=== PATIENT | male | born 2000 | race Caucasian/White ===

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

== ENCOUNTER 2023-03-06 15:22 | Emergency (ER) | payer BC, SELFPAY ==
[2023-03-06 15:30] VITALS: BP 134/90; PULSE 75; RESP 18; TEMP 36.8; O2SAT 98; BMI 21.7
--- NOTE | 2023-03-06 16:15 | EXP.UTC ---
Discharge Plan Disposition Patient Disposition: Home, Self-Care Condition: Good Prescriptions Prescriptions: New clindamycin HCl 300 mg capsule 300 mg PO TID 7 Days Qty: 21 0RF No Action hydroxyzine pamoate 25 mg capsule 25 mg PO QIDP PRN (Reason: Anxiety) Referrals Follow up/Referrals: Provider,Referral, [Primary Care Provider] - See instructions Activity Restrictions/Add. Instructions Additional Instructions/Restrictions: Take medication as prescribed FOllow up with Dentist next week when back in office Over the counter Motrin and/or Tylenol as directed on package for pain Return if needed Clinical Impressions Clinical Impression: Dental infection Instructions Patient Instructions: Clindamycin Discharge ED Provider: Silvia Hood Martina [facility] [[email or web address] HPI General Stated complaint: RT sdie face swollen Mode of Arrival: Ambulatory Source of Information: Patient Limitations: No Limitations Time Seen by Provider: 03/06/23 16:15 Description of Symptoms (Recalled from Triage Doc. by RN): PATIENT REPORTS HE GOT A RIGHT LOWER TOOTH PULLED ON THURSDAY AND THIS MORNING HE HAD SWELLING TO RIGHT SIDE OF FACE. DENIES ANY PAIN TO AREA HEENT Symptoms (Recalled from RN notes): Yes Resp Symptoms (Recalled from RN notes): No Skin Symptoms (Recalled from RN notes): No MS Symptoms (Recalled from RN notes): No Functional Status (Recalled from RN notes): WNL History of Present Illness Provider Complaint: Patient states that he had a tooth pulled on Thu and this morning woke up with his jaw area slightly swollen and states that he thinks it may be infected States that he can taste it at times States that he called the dental office and they was closed so he came in here to get checked Related Data Home Medications Medication Instructions Recorded Confirmed hydroxyzine pamoate 25 mg capsule 25 mg PO QIDP PRN Anxiety 03/06/23 03/06/23 Previous Rx's Medication Instructions Recorded clindamycin HCl 300 mg capsule 300 mg PO TID 7 days #21 caps 03/06/23 Allergies Allergy/AdvReac Type Severity Reaction Status Date / Time codeine Allergy Verified 03/06/23 15:38 Worker's Comp Is this a Worker's Comp case?: No [facility] Disclaimer: The information contained in this section may have been updated after the patient was seen, as this information can be updated by other users. Medical History (Updated 03/06/23 @ 16:21 by Silvia Hood APRN) Anxiety Depression Surgical History (Updated 03/06/23 @ 15:41 by Shauna Ramesh RN) History of tonsillectomy History of tympanostomy tube placement Social History Smoking Status: Unknown if ever smoked alcohol intake: never current occupational status: employed Travel in the last 8 weeks: None ROS Obtained: Yes All systems reviewed & no additional complaints except as documented and Yes Systems reviewed as appropriate & no additional complaints except as documented ENT Ears, Nose, Mouth, and Throat: Reports system reviewed and no additional complaints, except as documented, Reports as per HPI and Reports other (Dental pain and swelling after having tooth removed earlier in the week) Cardiovascular Cardiovascular: Reports system reviewed and no additional complaints, except as documented and Reports as per HPI Gastrointestinal Gastrointestingal: Reports system reviewed and no additional complaints, except as documented and as per HPI Physical Exam General General appearance: alert and in no apparent distress Expanded ENT Exam Comment: Swelling in right lower jaw and infection after having tooth removed Respiratory Respiratory exam: Present normal lung sounds bilaterally; Absent respiratory distress or wheezes Cardiovascular Cardiovascular exam: Present regular rate, normal rhythm and normal heart sounds Abdominal Exam Abdominal exam: Present soft and normal bowel sounds; Absent distention or tenderness Neurological Exam Neurological exam: Presen
[2023-03-06 16:23] VITALS: BP 134/90; PULSE 75; RESP 18; TEMP 36.8; O2SAT 98
== END 2023-03-06 16:26 | disposition home or self-care (01) ==
PROVIDERS: Emergency Provider Nurse Practitioner
DX: R22.0 Localized swelling, mass and lump, head (principal); F41.9 Anxiety disorder, unspecified; F32.A Depression, unspecified
CPT/HCPCS: 99212; 99214; G0463

== ENCOUNTER → 2023-04-14 00:10 | Outpatient (CLI) | payer BC, SELFPAY ==
[2023-04-16 09:24] LABS: HBsAg Screen Negative (Negative); HCV Ab Non Reactive (Non Reactive); HIV Screen 4th Generation wRfx Non Reactive (Non Reactive); Hep A Ab, IGM Negative (Negative); Hep B Core Ab, IgM Negative (Negative)
== END ==
PROVIDERS: PCP Nurse Practitioner Psychiatric/Mental Health; Visit Provider Nurse Practitioner Psychiatric/Mental Health
DX: F19.11 Other psychoactive substance abuse, in remission (principal); Z11.4 Encounter for screening for human immunodeficiency virus [HIV]
CPT/HCPCS: 80074; 86703; G0432

== ENCOUNTER 2023-04-23 17:41 | Emergency (ER) | payer BC, SELFPAY ==
[2023-04-23 18:05] VITALS: BP 132/86; PULSE 82; RESP 20; TEMP 36.8; O2SAT 99; BMI 21.7
--- NOTE | 2023-04-23 18:36 | EXP.UTC ---
Discharge Plan Disposition Patient Disposition: Home, Self-Care Condition: Good Prescriptions Prescriptions: New ibuprofen 600 mg tablet 600 mg PO Q6HP PRN (Reason: Moderate Pain) Qty: 20 0RF No Action hydroxyzine pamoate 25 mg capsule 25 mg PO QIDP PRN (Reason: Anxiety) buspirone 10 mg tablet 10 mg PO BID Referrals Follow up/Referrals: Provider,Referral, MD [Primary Care Provider] - See instructions Activity Restrictions/Add. Instructions Additional Instructions/Restrictions: Use dental balls as directed in the [facility] today Ibuprofen as prescribed FOllow up with Dentist if pain persists or does not improve Clinical Impressions Clinical Impression: Pain, dental Instructions Patient Instructions: Ibuprofen, DI for Dental Pain Discharge ED Provider: Silvia Hood [facility] HPI General Stated complaint: dental pain Mode of Arrival: Ambulatory Source of Information: Patient Limitations: No Limitations Time Seen by Provider: 04/23/23 18:36 Description of Symptoms (Recalled from Triage Doc. by RN): PATIENT C/O NERVE PAIN IN MOUTH AFTER HAVING DENTAL WORK DONE TODAY AND YESTERDAY HEENT Symptoms (Recalled from RN notes): Yes Resp Symptoms (Recalled from RN notes): No Skin Symptoms (Recalled from RN notes): No MS Symptoms (Recalled from RN notes): No Functional Status (Recalled from RN notes): WNL History of Present Illness Provider Complaint: Patient states that he had dental work done yesterday and today and he is having nerve pain in his left side State that they did a filling and a crown and after he got home it started hurting so he came in to see if he could get something to help Related Data Home Medications Medication Instructions Recorded Confirmed hydroxyzine pamoate 25 mg capsule 25 mg PO QIDP PRN Anxiety 03/06/23 04/23/23 buspirone 10 mg tablet 10 mg PO BID . 04/23/23 04/23/23 Previous Rx's Medication Instructions Recorded ibuprofen 600 mg tablet 600 mg PO Q6HP PRN Moderate Pain 04/23/23 #20 tabs Allergies Allergy/AdvReac Type Severity Reaction Status Date / Time codeine Allergy Verified 04/13/23 13:21 Worker's Comp Is this a Worker's Comp case?: No [facility] Disclaimer: The information contained in this section may have been updated after the patient was seen, as this information can be updated by other users. Medical History (Updated 04/23/23 @ 18:41 by Silvia Hood APRN) Anxiety Depression Drug abuse in remission Generalized anxiety disorder History of intravenous drug abuse History of seizure Surgical History (Updated 04/13/23 @ 13:50 by Debo Beard APRN) History of surgery on arm History of tonsillectomy History of tympanostomy tube placement Social History (Updated 04/13/23 @ 13:49 by Debo Beard APRN) Smoking Status: Current some day smoker second hand exposure: No alcohol intake: current counseling given: No substance use type: former substance user, marijuana, crack/cocaine, heroin and IV drugs counseling given: No current occupational status: employed Travel in the last 8 weeks: None adopted: No caregiver/support person: No foster care: No household members: family housing: house lives independently: No marital status: single number of children: 0 number of grandchildren: 0 education level: high school Hx Recent Travel: No sexually active: Yes caffeine: Yes physical activity: none jose/church: [employer]ain special jose needs: No working smoke detector in home: Yes fire extinguisher in home: Yes carbon monox detector in home: Yes firearms in home: Yes firearms unloaded and locked: Yes do you feel safe at home: Yes victim of physical abuse: No victim of emotional abuse: No victim of sexual abuse: No would you like helpful sources: No ROS Obtained: Yes All systems reviewed & no additional complaints except as documented and Yes Systems re
[2023-04-23 18:42] VITALS: BP 132/86; PULSE 82; RESP 20; TEMP 36.8; O2SAT 99
== END 2023-04-23 18:45 | disposition home or self-care (01) ==
PROVIDERS: Emergency Provider Nurse Practitioner
DX: K08.89 Other specified disorders of teeth and supporting structures (principal); F17.210 Nicotine dependence, cigarettes, uncomplicated; F41.1 Generalized anxiety disorder; F32.A Depression, unspecified; F19.11 Other psychoactive substance abuse, in remission
CPT/HCPCS: 99212; 99214; G0463

== ENCOUNTER 2024-01-14 19:28 | Emergency (ER) | payer BC, SELFPAY ==
[2024-01-14 19:29] VITALS: BP 156/85; PULSE 86; RESP 20; TEMP 36.8; O2SAT 100; BMI 17.5
--- NOTE | 2024-01-14 19:33 | ED_ITS ---
Discharge Plan Disposition Patient Disposition: Home, Self-Care Condition: Good Prescriptions Prescriptions: No Action pantoprazole 40 mg tablet,delayed release (DR/EC) 40 mg PO DAILY Qty: 60 4RF Referrals Follow up/Referrals: Enrrique Wilkinson MD [Staff Physician] - See instructions (Upper endoscopy) Alexey Clayton MD [Primary Care Provider] - See instructions Debo Beard APRN [Nurse Practitioner] - See instructions (Anxiety disorder) Activity Restrictions/Add. Instructions Additional Instructions/Restrictions: Follow-up with Dr. Wilkinson for upper endoscopy. Unfortunately I was unable to order your barium swallow from the ER. Please follow-up with your PCP to have a barium swallow ordered. You can try calling in the morning to see if they will order it. Return to the ER for any worsening signs or symptoms. Clinical Impressions Clinical Impression: MAYCOL (generalized anxiety disorder) Dysphagia Qualifiers: Dysphagia type: unspecified Qualified Code(s): R13.10 - Dysphagia, unspecified Instructions Patient Instructions: DI for Esophageal Dysphagia Discharge ED Provider: George Sears General Adult HPI <NATALIE Huitron - Last Filed: 01/14/24 21:37> General Chief complaint: Skin/Abscess/Foreign Body Stated complaint: diff swallowing, SOA Time Seen by Provider: 01/14/24 19:30 History of Present Illness HPI narrative: Patient presents for evaluation dysphagia. Patient states that since August he is having intermittent but now persistent difficulty in swallowing. Patient states that is not painful he just cannot get solid things down. It is worse with starchy foods like potato and breads. He is able to swallow liquids with no difficulty. He denies chest pain shortness of breath fever chills hemoptysis hematochezia melena nausea vomiting diarrhea. He does report that he has a history of a panic disorder but is on no medications currently. Patient saw PCP today and was prescribed pantoprazole and a ultrasound per the patient's report was set up. Related Data Previous Rx's Medication Instructions Recorded pantoprazole 40 mg tablet,delayed 40 mg PO DAILY #60 tabs 01/12/24 release Allergies Allergy/AdvReac Type Severity Reaction Status Date / Time codeine AdvReac Intermediate Gastrointestinal Verified 01/14/24 20:13 Upset Penicillins AdvReac Intermediate Gastrointestinal Verified 01/14/24 20:13 Upset PFSH <NATALIE Huitron - Last Filed: 01/14/24 21:37> [facility] Disclaimer: The information contained in this section may have been updated after the patient was seen, as this information can be updated by other users. Medical History Drug abuse in remission Generalized anxiety disorder History of intravenous drug abuse History of seizure -more associated with pain -like if he hit his elbow -he would have one -last one was when he was 7-8 years old Depression Anxiety Surgical History History of surgery on arm left arm -X2 History of tympanostomy tube placement History of tonsillectomy Family History Family/Other No significant family history Social History Smoking Status: Never smoker second hand exposure: No alcohol intake: current alcohol intake frequency: a few times a month counseling given: No substance use type: former substance user, marijuana, crack/cocaine, heroin and IV drugs counseling given: No current occupational status: employed Travel in the last 8 weeks: None adopted: No caregiver/support person: No foster care: No household members: family housing: house lives independently: No marital status: single number of children: 0 number of grandchildren: 0 education level: high school Hx Recent Travel: No sexually active: Yes caffeine: Yes physical activity: none jose/taoist: Restoration special jose needs: No working smoke detector in home: Yes fire extinguisher in home: Yes carbon monox detector in home: Yes firearms in home: Yes firearms unloaded and locked: Yes do you feel safe at home: Yes victim of physical abuse: No victim of emotional abuse: No victim of sexual abuse: No would you like helpful sources: No <NATALIE Huitron - Last Filed: 01/14/24 21:37> ROS Obtained: Yes Systems reviewed as appropriate & no additional complaints except as documented Physical Exam <NATALIE Huitron - Last Filed: 01/14/24 21:37> General General appearance: alert and in no apparent distress Respiratory Respiratory exam: Present normal lung sounds bilaterally Cardiovascular Cardiovascular exam: Present regular rate and normal rhythm Abdominal Exam Abdominal exam: Present soft and normal bowel sounds; Absent tenderness, guarding or rebound Back Exam Back exam: Present normal inspection and full ROM; Absent tenderness Neurological Exam Neurological exam: Present alert and oriented X3 Psychiatric Psychiatric exam: Present agitated and anxious Skin Skin exam: Present warm, dry and normal color Lymphatic Lymphatic Findings: no adenopathy Medical Decision Making <NATALIE Huitron - Last Filed: 01/14/24 21:37> Medical Records Medical records reviewed: Yes I reviewed the patient's medical records. [place] Inquiry Pt receiving controlled substance: No Vital Signs: 01/14/24 19:29 01/14/24 19:35 01/14/24 20:30 Temperature 98.3 F Temperature Source Oral Pulse Rate 93 H 99 H Pulse Rate [Left] 86 Respiratory Rate 20 Blood Pressure 156/85 H Blood Pressure [Right Arm] 156/85 H Blood Pressure Mean [Right Arm] 108 Blood Pressure Source [Right Arm] Automatic Cuff Blood Pressure Position [Right Arm] Sitting 02 Sat by Pulse Oximetry 100 99 100 Oxygen Delivery Method Room Air 01/14/24 21:45 01/14/24 21:58 Temperature 98.2 F Temperature Source Pulse Rate 66 67 Pulse Rate [Left] Respiratory Rate 17 Blood Pressure 136/88 136/88 Blood Pressure [Right Arm] Blood Pressure Mean [Right Arm] Blood Pressure Source [Right Arm] Blood Pressure Position [Right Arm] 02 Sat by Pulse Oximetry 98 Oxygen Delivery Method Room Air Lab Data Lab results reviewed: Yes I reviewed the patient's lab results. Lab Results 01/14/24 20:07: WBC 7.7, RBC 5.00, Hgb 16.3, Hct 47.5, MCV 94.8 H, MCH 32.6 H, MCHC 34.4, RDW 13.0, Plt Count 165, MPV 8.9, Neut % (Auto) 59.8, Lymph % (Auto) 34.5, Petroleum % (Auto) 3.8, Eos % (Auto) 1.1, Baso % (Auto) 0.8, Neut # (Auto) 4.6, Lymph # (Auto) 2.7, Petroleum # (Auto) 0.3, Eos # (Auto) 0.1, Baso # (Auto) 0.1, Sodium 138, Potassium 3.6, Chloride 102, Carbon Dioxide 27, Anion Gap 12.6, BUN 10, Creatinine 1.10, Estimated Creat Clear 91, Estimated GFR 85, Est GFR ( Amer) 102, Glucose 103 H, Calcium 9.9, Magnesium 1.8, Total Bilirubin 0.8, AST 29, ALT 23, Alkaline Phosphatase 74, Troponin I < 0.01, Total Protein 8.4 H, Albumin 5.0, Globulin 3.4 H, Albumin/Globulin Ratio 1.5, Lipase 71 01/14/24 20:07 01/14/24 20:07 Orders (Tests/Meds): ED MEDICATIONS Discontinued Medications Generic Name Dose Route Start Last Admin Trade Name Freq PRN Reason Stop Dose Admin Acetaminophen 1,000 mg 01/14/24 19:45 01/14/24 20:05 Acetaminophen 1,000mg/100ml Vial IV 01/14/24 19:46 1,000 mg ONCE ONE Administration Belladonna Alkaloids 60 ml 01/14/24 19:45 01/14/24 20:05 Belladonna Alkaloids 60 Ml Ml PO 01/14/24 19:46 60 ml ONCE ONE Administration Dexamethasone Sodium Phosphate 10 mg 01/14/24 19:45 01/14/24 20:05 Dexamethasone 4mg/Ml 5ml Mdv IV 01/14/24 19:46 10 mg ONCE ONE Administration Lactated Ringer's 1,000 mls @ 999 mls/hr 01/14/24 19:45 01/14/24 20:04 Lactated Ringer's 1000 Ml Bag IV 01/14/24 20:45 999 mls/hr .Q1H1M ONE Administration Pantoprazole Sodium 80 mg/ 100 mls @ 100 mls/hr 01/14/24 19:48 01/14/24 20:04 Sodium Chloride IV 01/14/24 20:47 100 mls/hr ONCE ONE Administration Ketorolac Tromethamine 15 mg 01/14/24 19:45 01/14/24 20:05 Ketorolac 30mg/Ml Vial IV 01/14/24 19:46 15 mg ONCE ONE Administration Lorazepam 0.5 mg 01/14/24 20:01 01/14/24 20:11 Lorazepam 2mg/Ml Vial IV 01/14/24 20:02 0.5 mg ONCE ONE Administration Lorazepam 0.5 mg 01/14/24 20:45 01/14/24 21:05 Lorazepam 2mg/Ml Vial IV 01/14/24 20:46 Not Given ONCE ONE Sodium Chloride 10 ml 01/14/24 20:45 Sodium Chloride 0.9% 10ml Vial IV 02/13/24 20:44 NEEDED PRN to Dilute Lorazepam inj ORDERS Category Date Time Status CBC w/Auto Diff [Complete Blood Count Auto Diff] Stat Lab 01/14/24 20:07 Completed CMP [Comprehensive Metabolic Panel] Stat Lab 01/14/24 20:07 Completed Lipase Stat Lab 01/14/24 20:07 Completed Magnesium Stat Lab 01/14/24 20:07 Completed Trop I [Troponin I] Stat Lab 01/14/24 20:07 Completed Medical Decision Narrative: In summary patient is a 23-year-old male who presents to the emergency department for evaluation of dysphagia. Patient is hemodynamically stable upon arrival, afebrile. Zickel exam shows slightly cachectic appearing but otherwise healthy 23-year-old male that has no abdominal pain on palpation but has a self- reported difficulty swallowing. Patient states he has most difficulty with starchy foods such as potato and bread but is tolerating oral liquids without difficulty. Patient also is very anxious on exam. Differential diagnosis includes anxiety disorder versus panic disorder versus GERD versus gastric ulcer versus eosinophilic esophagitis versus esophageal stricture etc. Initial workup will be conducted with hematologic labsl. Initial interventions include Ativan Toradol Tylenol GI cocktail. Initial workup reviewed by me shows that his hematologic labs are nonactionable. Upon repeat evaluation patient reported moderate improvement especially with his anxiety. Given this patient will be discharged with orders for barium swallow tomorrow and referral to general surgery for endoscopy and behavioral health. <George Sears MD - Last Filed: 01/14/24 22:58> Vital Signs: 01/14/24 19:29 01/14/24 19:35 01/14/24 20:30 Temperature 98.3 F Temperature Source Oral Pulse Rate 93 H 99 H Pulse Rate [Left] 86 Respiratory Rate 20 Blood Pressure 156/85 H Blood Pressure [Right Arm] 156/85 H Blood Pressure Mean [Right Arm] 108 Blood Pressure Source [Right Arm] Automatic Cuff Blood Pressure Position [Right Arm] Sitting 02 Sat by Pulse Oximetry 100 99 100 Oxygen Delivery Method Room Air 01/14/24 21:45 01/14/24 21:58 Temperature 98.2 F Temperature Source Pulse Rate 66 67 Pulse Rate [Left] Respiratory Rate 17 Blood Pressure 136/88 136/88 Blood Pressure [Right Arm] Blood Pressure Mean [Right Arm] Blood Pressure Source [Right Arm] Blood Pressure Position [Right Arm] 02 Sat by Pulse Oximetry 98 Oxygen Delivery Method Room Air Lab Data Lab Results 01/14/24 20:07: WBC 7.7, RBC 5.00, Hgb 16.3, Hct 47.5, MCV 94.8 H, MCH 32.6 H, MCHC 34.4, RDW 13.0, Plt Count 165, MPV 8.9, Neut % (Auto) 59.8, Lymph % (Auto) 34.5, Petroleum % (Auto) 3.8, Eos % (Auto) 1.1, Baso % (Auto) 0.8, Neut # (Auto) 4.6, Lymph # (Auto) 2.7, Petroleum # (Auto) 0.3, Eos # (Auto) 0.1, Baso # (Auto) 0.1, Sodium 138, Potassium 3.6, Chloride 102, Carbon Dioxide 27, Anion Gap 12.6, BUN 10, Creatinine 1.10, Estimated Creat Clear 91, Estimated GFR 85, Est GFR ( Amer) 102, Glucose 103 H, Calcium 9.9, Magnesium 1.8, Total Bilirubin 0.8, AST 29, ALT 23, Alkaline Phosphatase 74, Troponin I < 0.01, Total Protein 8.4 H, Albumin 5.0, Globulin 3.4 H, Albumin/Globulin Ratio 1.5, Lipase 71 Orders (Tests/Meds): ED MEDICATIONS Discontinued Medications Generic Name Dose Route Start Last Admin Trade Name Arabella PRN Reason Stop Dose Admin Acetaminophen 1,000 mg 01/14/24 19:45 01/14/24 20:05 Acetaminophen 1,000mg/100ml Vial IV 01/14/24 19:46 1,000 mg ONCE ONE Administration Belladonna Alkaloids 60 ml 01/14/24 19:45 01/14/24 20:05 Belladonna Alkaloids 60 Ml Ml PO 01/14/24 19:46 60 ml ONCE ONE Administration Dexamethasone Sodium Phosphate 10 mg 01/14/24 19:45 01/14/24 20:05 Dexamethasone 4mg/Ml 5ml Mdv IV 01/14/24 19:46 10 mg ONCE ONE Administration Lactated Ringer's 1,000 mls @ 999 mls/hr 01/14/24 19:45 01/14/24 20:04 Lactated Ringer's 1000 Ml Bag IV 01/14/24 20:45 999 mls/hr .Q1H1M ONE Administration Pantoprazole Sodium 80 mg/ 100 mls @ 100 mls/hr 01/14/24 19:48 01/14/24 20:04 Sodium Chloride IV 01/14/24 20:47 100 mls/hr ONCE ONE Administration Ketorolac Tromethamine 15 mg 01/14/24 19:45 01/14/24 20:05 Ketorolac 30mg/Ml Vial IV 01/14/24 19:46 15 mg ONCE ONE Administration Lorazepam 0.5 mg 01/14/24 20:01 01/14/24 20:11 Lorazepam 2mg/Ml Vial IV 01/14/24 20:02 0.5 mg ONCE ONE Administration Lorazepam 0.5 mg 01/14/24 20:45 01/14/24 21:05 Lorazepam 2mg/Ml Vial IV 01/14/24 20:46 Not Given ONCE ONE Sodium Chloride 10 ml 01/14/24 20:45 Sodium Chloride 0.9% 10ml Vial IV 02/13/24 20:44 NEEDED PRN to Dilute Lorazepam inj ORDERS Category Date Time Status CBC w/Auto Diff [Complete Blood Count Auto Diff] Stat Lab 01/14/24 20:07 Completed CMP [Comprehensive Metabolic Panel] Stat Lab 01/14/24 20:07 Completed Lipase Stat Lab 01/14/24 20:07 Completed Magnesium Stat Lab 01/14/24 20:07 Completed Trop I [Troponin I] Stat Lab 01/14/24 20:07 Completed Medical Decision Narrative: In summary patient is a 23-year-old male who presents to the emergency department for evaluation of dysphagia. Patient is hemodynamically stable upon arrival, afebrile. Zickel exam shows slightly cachectic appearing but otherwise healthy 23-year-old male that has no abdominal pain on palpation but has a self- reported difficulty swallowing. Patient states he has most difficulty with starchy foods such as potato and bread but is tolerating oral liquids without difficulty. Patient also is very anxious on exam. Differential diagnosis includes anxiety disorder versus panic disorder versus GERD versus gastric ulcer versus eosinophilic esophagitis versus esophageal stricture etc. Initial workup will be conducted with hematologic labsl. Initial interventions include Ativan Toradol Tylenol GI cocktail. Initial workup reviewed by me shows that his hematologic labs are nonactionable. Upon repeat evaluation patient reported moderate improvement especially with his anxiety. Given this patient will be discharged with orders for barium swallow tomorrow and referral to general surgery for endoscopy and behavioral health. I was consulted by the NIXON, and we discussed the complexity of the problems being addressed. I approved the treatment and management plan for this patient?s care in the Emergency Department, thus performing a substantive portion of the medical decision making. Because patient at baseline without signs or symptoms of clinical decompensation, deemed appropriate for discharge. Results were relayed to patient who voiced understanding and were agreeable to outpatient management and follow up. I discussed my clinical impression with patient and answered all questions. At this time, the evidence for any other entities in the differential is insufficient to warrant any further testing or ED observation. This was explained as well. Advisory was given that persistent or worsening symptoms require further evaluation. I confirmed the understanding of this discussion. George Sears MD Critical Care <NATALIE Huitron - Last Filed: 01/14/24 21:37> Critical Care Time Critical Care Time: No
[2024-01-14 19:35] VITALS: BP 156/85; PULSE 93; O2SAT 99
[2024-01-14] MEDS: PANTOPRAZOLE SODIUM 80 MG in 0.9 % SODIUM CHLORIDE 100 ML 100 MG IV (20:04)
[2024-01-14] MEDS: LACTATED RINGERS 1000ML 1,000 ML 999 ML IV (20:04)
[2024-01-14] MEDS: DEXAMETHASONE 4MG/ML 5ML MDV 10 MG IV (20:05)
[2024-01-14] MEDS: KETOROLAC 30MG/ML VIAL 15 MG IV (20:05)
[2024-01-14] MEDS: BELLADONNA ALKALOIDS 60 ML ML PO (20:05)
[2024-01-14] MEDS: ACETAMINOPHEN 1,000MG/100ML VIAL 1000 MG IV (20:05)
[2024-01-14] MEDS: LORazepam 2MG/ML VIAL 0.5 MG IV (20:11)
--- NOTE | 2024-01-14 20:12 | PC.NURSE ---
Pt was very anxious, Dr Kovacs asked for Ativan to given at 2009, medication was not verified. I medicated and went to waste in omni and medication is not showing as pulled. Wasted with Brisa DUMONT
[2024-01-14 20:15] LABS: Basophils # 0.1 K/mm3 (0-0.2); Basophils % 0.8 % (0.1-2.0); Eosinophils # 0.1 K/mm3 (0.0-0.4); Eosinophils % 1.1 % (0.1-12.0); Hematocrit 47.5 % (42.0-52.0); Hemoglobin 16.3 g/dL (14.1-18.0); Lymphocytes # 2.7 K/mm3 (0.7-4.5); Lymphocytes % 34.5 % (10-50); Mean Corpuscular HGB Conc 34.4 g/dL (31.8-35.4); Mean Corpuscular Hemoglobin 32.6 pg (27.0-31.2); Mean Corpuscular Volume 94.8 fl (80-94); Mean Platelet Volume 8.9 fl (7.4-10.4); Monocytes # 0.3 K/mm3 (0.1-1.0); Monocytes % 3.8 % (1.7-9.3); Neutrophils # 4.6 K/mm3 (1.8-7.8); Neutrophils % 59.8 % (37.0-80.0); Platelet Count 165 K/mm3 (142-424); White Blood Count 7.7 K/mm3 (4.8-10.8)
[2024-01-14 20:18] LABS: Chloride 102 mmol/L (98-107); Potassium 3.6 mmoL/L (3.5-5.1); Sodium 138 mmol/L (136-145)
[2024-01-14 20:20] LABS: Alanine Aminotransferase 23 U/L (12-78); Aspartate Amino Transferase 29 U/L (17-59); Blood Urea Nitrogen 10 mg/dl (9-20); Creatinine Clearance Estimated 91 mL/min (50-200); Estimated Glomerular Filt Rate 85 ml/min (>60); GFR (African American) 102 ML/MIN (>60)
[2024-01-14 20:21] LABS: Albumin/Globulin Ratio 1.5 (1.1-1.8); Alkaline Phosphatase 74 U/L (38-126); Anion Gap 12.6 mEq/L (5-15); Bilirubin,Total 0.8 mg/dl (0.2-1.3); Calcium 9.9 mg/dl (8.4-10.2); Carbon Dioxide 27 mmol/L (22.0-30.0); Globulin 3.4 g/dL (1.3-3.2); Glucose 103 mg/dl (74-100); Lipase 71 U/L (23-300); Magnesium 1.8 mg/dl (1.6-2.3); Total Protein,Serum 8.4 g/dl (6.3-8.2)
[2024-01-14 20:30] VITALS: PULSE 99; O2SAT 100
[2024-01-14 20:33] LABS: Troponin I < 0.01 ng/ml (0.00-0.034)
[2024-01-14 21:45] VITALS: BP 136/88; PULSE 66; O2SAT 98
[2024-01-14 21:58] VITALS: BP 136/88; PULSE 67; RESP 17; TEMP 36.8; O2SAT 97
== END 2024-01-14 22:00 | disposition home or self-care (01) ==
PROVIDERS: Physician Assistant; Emergency Provider Emergency Medicine; PCP Family Medicine
DX: R13.10 Dysphagia, unspecified (principal); F41.1 Generalized anxiety disorder
CPT/HCPCS: 80053; 83690; 83735; 84484; 85025; 96365; 96375; 96376; 99284; J0131; J7120

== ENCOUNTER 2024-01-15 13:44 | Emergency (ER) | payer BC, SELFPAY ==
[2024-01-15] VITALS (9 sets, daily range): BP systolic 128–140; BP diastolic 68–88; PULSE 75–104; RESP 18; TEMP 36.6–36.7; O2SAT 97–100; BMI 17.5
--- NOTE | 2024-01-15 15:03 | CT_ITS ---
FINAL REPORT CLINICAL HISTORY: dysphagia FINDINGS: CT CHEST WITH CONTRAST TECHNIQUE: After the administration of intravenous contrast, axial images through the chest were performed by computed tomography. This study was performed with techniques to keep radiation doses as low as reasonably achievable, (ALARA). Individualized dose reduction techniques using automated exposure control or adjustment of mA and/or kV according to the patient's size were employed. FINDINGS: The thoracic esophagus is decompressed having a grossly unremarkable appearance. There is no evidence of pneumomediastinum. There is no axillary adenopathy. There is no hilar or mediastinal adenopathy. The heart size is normal. There is no pericardial or pleural effusion. No suspicious infiltrate or nodule identified. Limited images of the upper abdomen are unremarkable. IMPRESSION: 1. No evidence of aspiration pneumonia. 2. No evidence of mediastinal mass or obvious esophageal wall thickening. Reviewed, Interpreted and Dictated by Avinash Copeland MD Transcribed by Leticia Sam Authenticated and [facility]
--- NOTE | 2024-01-15 15:20 | PC.NURSE ---
PT TO CT
--- NOTE | 2024-01-15 15:31 | ED_ITS ---
Discharge Plan Disposition Patient Disposition: Home, Self-Care Prescriptions Prescriptions: No Action pantoprazole 40 mg tablet,delayed release (DR/EC) 40 mg PO DAILY Qty: 60 4RF Referrals Follow up/Referrals: Alexey Clayton MD [Primary Care Provider] - See instructions Activity Restrictions/Add. Instructions Additional Instructions/Restrictions: Your EGD is scheduled for 8:30 AM on Thursday. Please be n.p.o. at midnight and come to the hospital at 7 AM. Clinical Impressions Clinical Impression: Dysphagia Qualifiers: Dysphagia type: unspecified Qualified Code(s): R13.10 - Dysphagia, unspecified Instructions Patient Instructions: DI for Acute Abdominal Pain Discharge ED Provider: Gulshan Moore General Adult HPI <Troy Escobar MD - Last Filed: 01/15/24 16:48> General Chief complaint: Abdominal Pain Stated complaint: diff. swallowing, stomach pain Time Seen by Provider: 01/15/24 14:50 Mode of Arrival: Ambulatory Source of Information: Patient Limitations: No Limitations Description of Symptoms (Recalled from ER Triage Doc. by RN): pt presents to ED stating he was seen in the ED last night for difficulty swallowing. pt states that he was instructed to follow up for a barium swallow and endoscopy. pt states he did call Dr. Cameron office today, NATALIE Carrillo for an appointment but informed it would be months before he could have test obtained. pt states that he has beenunable to eat for 11 days and has had a 13 lb weight loss. pt states he can tolerate his saliva and water but the more thickened liquids like smoothies and solids he is unable. pt reports burning sensation in upper abdomen that will come into throat approx daily. pt reports taking Pantoprazole 40 mg daily. History of Present Illness HPI narrative: Patient is a 23-year-old male with history of anxiety/depression who presents due to dysphagia. Patient's girlfriend is present to help provide history. Patient reports since August he has had progressive dysphagia. Over the past 11 days, he has been unable to eat solid foods and has lost 13 pounds. States he has been able to tolerate thin liquids however thick liquids are challenging. He describes a pressure-like sensation when trying to swallow. States he was initially seen by his primary care provider who had concern for GERD versus ulcer. He was prescribed pantoprazole which he has been taking. He states this has slightly helped however he is still unable to eat foods. Patient was seen in the ED yesterday and labs were performed and unremarkable. He was advised to follow-up with surgery for barium swallow or endoscopy. States he attempted to contact surgery office this morning and was told he would not be able to be seen until 01/18 and he would take weeks to months to obtain either barium swallow or endoscopy at that point. He was advised to return to the ED for further evaluation. Related Data Previous Rx's Medication Instructions Recorded pantoprazole 40 mg tablet,delayed 40 mg PO DAILY #60 tabs 01/12/24 release Allergies Allergy/AdvReac Type Severity Reaction Status Date / Time codeine AdvReac Intermediate Gastrointestinal Verified 01/14/24 20:13 Upset Penicillins AdvReac Intermediate Gastrointestinal Verified 01/14/24 20:13 Upset PFSH <Troy Escobar MD - Last Filed: 01/15/24 16:48> [facility] Disclaimer: The information contained in this section may have been updated after the patient was seen, as this information can be updated by other users. Medical History Drug abuse in remission Generalized anxiety disorder History of intravenous drug abuse History of seizure -more associated with pain -like if he hit his elbow -he would have one -last one was when he was 7-8 years old Depression Anxiety Surgical History History of surgery on arm left arm -X2 History of tympanostomy tube placement History of tonsillectomy Family History Family/Other No significant family history Social History Smoking Status: Former smoker second hand exposure: No alcohol intake: current alcohol intake frequency: a few times a month counseling given: No substance use type: former substance user, marijuana, crack/cocaine, heroin and IV drugs counseling given: No current occupational status: employed Travel in the last 8 weeks: None adopted: No caregiver/support person: No foster care: No household members: family housing: house lives independently: No marital status: single number of children: 0 number of grandchildren: 0 education level: high school Hx Recent Travel: No sexually active: Yes caffeine: Yes physical activity: none jose/presybeterian: Jewish special jose needs: No working smoke detector in home: Yes fire extinguisher in home: Yes carbon monox detector in home: Yes firearms in home: Yes firearms unloaded and locked: Yes do you feel safe at home: Yes victim of physical abuse: No victim of emotional abuse: No victim of sexual abuse: No would you like helpful sources: No <Troy Escobar MD - Last Filed: 01/15/24 16:48> ROS Obtained: Yes All systems reviewed & no additional complaints except as documented Physical Exam <Troy Escobar MD - Last Filed: 01/15/24 16:48> General General appearance: alert and in no apparent distress Head Head exam: atraumatic, normocephalic and normal inspection Eye Eye exam: Present normal appearance, PERRL and EOMI ENT ENT exam: Present normal exam, normal oropharynx, mucous membranes moist, TM's normal bilaterally and normal external ear exam Neck Neck exam: Present normal inspection, full ROM and trachea midline; Absent meningismus or lymphadenopathy Chest Chest inspection: Present normal inspection and symmetric chest wall rise; Absent tenderness Respiratory Respiratory exam: Present normal lung sounds bilaterally; Absent respiratory distress Cardiovascular Cardiovascular exam: Present regular rate and normal rhythm; Absent JVD Abdominal Exam Abdominal exam: Present soft and normal bowel sounds; Absent distention, tenderness or guarding Extremities Exam Extremities exam: Present normal inspection, full ROM and normal capillary refill; Absent calf tenderness Back Exam Back exam: Present normal inspection; Absent tenderness Neurological Exam Neurological exam: Present alert and oriented X3 Psychiatric Psychiatric exam: Present normal affect and normal mood Skin Skin exam: Present warm, dry, intact and normal color Lymphatic Lymphatic Findings: no adenopathy Medical Decision Making <Troy Escobar MD - Last Filed: 01/15/24 16:48> Medical Records Medical records reviewed: Yes I reviewed the patient's medical records. [place] Inquiry Pt receiving controlled substance: No Vital Signs: 01/15/24 13:45 01/15/24 13:49 01/15/24 14:00 Temperature 97.8 F Temperature Source Oral Pulse Rate 104 H 75 Pulse Rate [Right Radial] 103 H Respiratory Rate 18 Blood Pressure 140/88 130/83 Blood Pressure [Right Arm] 140/88 Blood Pressure Mean Blood Pressure Mean [Right Arm] 105 Blood Pressure Source [Right Arm] Automatic Cuff Blood Pressure Position [Right Arm] Sitting 02 Sat by Pulse Oximetry 100 100 99 Oxygen Delivery Method Room Air 01/15/24 14:30 01/15/24 15:00 01/15/24 16:00 Temperature Temperature Source Pulse Rate 85 94 H Pulse Rate [Right Radial] Respiratory Rate Blood Pressure 135/68 131/83 128/72 Blood Pressure [Right Arm] Blood Pressure Mean 88 Blood Pressure Mean [Right Arm] Blood Pressure Source [Right Arm] Blood Pressure Position [Right Arm] 02 Sat by Pulse Oximetry 100 100 Oxygen Delivery Method 01/15/24 16:07 01/15/24 16:30 Temperature Temperature Source Pulse Rate 91 H 78 Pulse Rate [Right Radial] Respiratory Rate 18 Blood Pressure 133/72 135/79 Blood Pressure [Right Arm] Blood Pressure Mean 92 Blood Pressure Mean [Right Arm] Blood Pressure Source [Right Arm] Blood Pressure Position [Right Arm] 02 Sat by Pulse Oximetry 100 100 Oxygen Delivery Method Room Air Orders (Tests/Meds): ED MEDICATIONS Discontinued Medications Generic Name Dose Route Start Last Admin Trade Name Freq PRN Reason Stop Dose Admin Iopamidol 75 ml 01/15/24 15:35 01/15/24 15:36 Iopamidol-370 (76%);100ml Bottle IV 01/15/24 15:36 75 ml ONCE ONE Administration Sodium Chloride 10 ml 01/15/24 15:35 01/15/24 15:36 Sodium Chloride 0.9% 10ml Syr (Rad Only) IV 01/15/24 15:36 10 ml ONCE ONE Administration ORDERS Category Date Time Status CT chest w con Stat Cat Scan 01/15/24 15:03 Completed Medical Decision Narrative: In summary, patient is a 23-year-old male, evaluated in the emergency department today due to worsening dysphagia. On arrival, patient is borderline tachycardic but hemodynamically stable, otherwise afebrile with normal vital signs. On examination, patient is resting comfortably no distress, tolerating secretions. Differential diagnosis includes but is not limited to esophagitis, foreign body, GERD, esophageal stricture. Lab work from ED visit yesterday including CBC, CMP, troponin, lipase reviewed with no significant findings seen. Workup initiated including CT chest with contrast. Additional history was provided by patient's girlfriend. Patient care handed off to pending CT results, final disposition. <Gulshan Moore MD - Last Filed: 01/15/24 17:06> Vital Signs: 01/15/24 13:45 01/15/24 13:49 01/15/24 14:00 Temperature 97.8 F Temperature Source Oral Pulse Rate 104 H 75 Pulse Rate [Right Radial] 103 H Respiratory Rate 18 Blood Pressure 140/88 130/83 Blood Pressure [Right Arm] 140/88 Blood Pressure Mean Blood Pressure Mean [Right Arm] 105 Blood Pressure Source [Right Arm] Automatic Cuff Blood Pressure Position [Right Arm] Sitting 02 Sat by Pulse Oximetry 100 100 99 Oxygen Delivery Method Room Air 01/15/24 14:30 01/15/24 15:00 01/15/24 16:00 Temperature Temperature Source Pulse Rate 85 94 H Pulse Rate [Right Radial] Respiratory Rate Blood Pressure 135/68 131/83 128/72 Blood Pressure [Right Arm] Blood Pressure Mean 88 Blood Pressure Mean [Right Arm] Blood Pressure Source [Right Arm] Blood Pressure Position [Right Arm] 02 Sat by Pulse Oximetry 100 100 Oxygen Delivery Method 01/15/24 16:07 01/15/24 16:30 Temperature Temperature Source Pulse Rate 91 H 78 Pulse Rate [Right Radial] Respiratory Rate 18 Blood Pressure 133/72 135/79 Blood Pressure [Right Arm] Blood Pressure Mean 92 Blood Pressure Mean [Right Arm] Blood Pressure Source [Right Arm] Blood Pressure Position [Right Arm] 02 Sat by Pulse Oximetry 100 100 Oxygen Delivery Method Room Air Lab Data Lab results reviewed: Yes I reviewed the patient's lab results. Orders (Tests/Meds): ED MEDICATIONS Discontinued Medications Generic Name Dose Route Start Last Admin Trade Name Freq PRN Reason Stop Dose Admin Iopamidol 75 ml 01/15/24 15:35 01/15/24 15:36 Iopamidol-370 (76%);100ml Bottle IV 01/15/24 15:36 75 ml ONCE ONE Administration Sodium Chloride 10 ml 01/15/24 15:35 01/15/24 15:36 Sodium Chloride 0.9% 10ml Syr (Rad Only) IV 01/15/24 15:36 10 ml ONCE ONE Administration ORDERS Category Date Time Status CT chest w con Stat Cat Scan 01/15/24 15:03 Completed Medical Decision Narrative: In summary, patient is a 23-year-old male, evaluated in the emergency department today due to worsening dysphagia. On arrival, patient is borderline tachycardic but hemodynamically stable, otherwise afebrile with normal vital signs. On examination, patient is resting comfortably no distress, tolerating secretions. Differential diagnosis includes but is not limited to esophagitis, foreign body, GERD, esophageal stricture. Lab work from ED visit yesterday including CBC, CMP, troponin, lipase reviewed with no significant findings seen. Workup initiated including CT chest with contrast. Additional history was provided by patient's girlfriend. Patient care handed off to pending CT results, final disposition. This is took over from the previous doctor at around 4:[address] scan performed to person interpreted shows no acute abnormality. I had an extensive discussion with the patient regarding options and I also spoke with Dr. Wilkinson regarding the case. Dr. Wilkinson was willing to keep the patient in the hospital for IV fluids until scope on Thursday but the patient declined admission. Therefore we called Dr. Wilkinson back and we will get an outpatient scope scheduled for 8:30 AM on Thursday he will be n.p.o. at midnight and come to the hospital at 7 AM. He is able to drink some fluids he has been encouraged to drink electrolytes and a protein shake if possible and to return with any complete obstruction or other concerns. Critical Care <Troy Escobar MD - Last Filed: 01/15/24 16:48> Critical Care Time Critical Care Time: No
--- NOTE | 2024-01-15 15:31 | PC.NURSE ---
pt returned from radiology.
[2024-01-15] MEDS: IOPAMIDOL-370 (76%);100ML BOTTLE 75 ML IV (15:36)
[2024-01-15] MEDS: SODIUM CHLORIDE 0.9% 10ML SYR (RAD ONLY) 10 ML IV (15:36)
--- NOTE | 2024-01-15 16:34 | PC.NURSE ---
[employer] CONSULTANT PAGED
--- NOTE | 2024-01-15 16:34 | PC.NURSE ---
DR RAMIREZ SPEAKING WITH DR GODWIN
--- NOTE | 2024-01-15 16:40 | PC.NURSE ---
DR RAMIREZ AT BEDSIDE TO UPDATE PT
--- NOTE | 2024-01-15 17:05 | PC.NURSE ---
pt declined admission and stated he would like to follow up on Thursday for scope. Dr. Wilkinson called at this time and stated to have patient be NPO at midnight and to come to the hospital at [phone]. TJ, housekeeping worker to write patient on surgery board for [address] Wilkinson request. pt given these discharge instructions.
== END 2024-01-15 17:12 | disposition home or self-care (01) ==
PROVIDERS: Emergency Provider Student in an Organized Health Care Education/Training Program; PCP Family Medicine
DX: R13.10 Dysphagia, unspecified (principal); R10.10 Upper abdominal pain, unspecified; R63.8 Other symptoms and signs concerning food and fluid intake
CPT/HCPCS: 71260; 99284; Q9967